=== PATIENT | male | born 1955 | race Caucasian/White ===

== ENCOUNTER 2018-07-07 05:33 | Inpatient (IN) | payer MEDICARE ==
[~2018-07-07] VITALS: Ht 185.4 cm; Wt 91.4 kg
[~2018-07-07 05:33] MED LIST: ASPI81CH PO; ATOR80 PO; GEMF600 PO; INSDET100 SC; ISOMON20 PO; LISI20 PO; METO50 PO
[2018-07-07 06:02] LABS: BASOPHILS ABSOLUTE AUTO 0.02 K/mm3 (0.00-0.23); BASOPHILS PERCENT AUTO 0 % (0-2); EOSINOPHILS ABSOLUTE AUTO 0.27 K/mm3 (0.00-0.68); EOSINOPHILS PERCENT AUTO 3 % (0-6); Hematocrit 48.9 % (37.0-53.0); Hemoglobin 16.7 g/dL (13.5-17.5); IMMATURE GRAN ABSOLUTE AUTO 0.01 K/mm3 (0.00-0.10); IMMATURE GRAN PERCENT AUTO 0 % (0-1); LYMPHOCYTES ABSOLUTE AUTO 2.39 K/mm3 (0.84-5.20); LYMPHOCYTES PERCENT AUTO 29 % (21-46); MONOCYTES ABSOLUTE AUTO 0.56 K/mm3 (0.16-1.47); MONOCYTES PERCENT AUTO 7 % (4-13); Mean Corpuscular HGB 28.2 pg (26.0-34.0); Mean Corpuscular HGB Conc 34.2 g/dL (31.5-36.5); Mean Corpuscular Volume 83 fL (80-100); Mean Platelet Volume 10.6 fL (9.1-12.4); NEUTROPHILS ABSOLUTE AUTO 4.99 K/mm3 (1.96-9.15); NEUTROPHILS PERCENT AUTO 61 % (41-73); Platelet Count 265 K/mm3 (150-400); RDW Coefficient Variation 12.4 % (11.7-14.2); RDW Standard Deviation 37.5 fL (35.1-46.3); Red Blood Cell Count 5.92 M/mm3 (4.30-5.90); White Blood Cell Count 8.24 K/mm3 (4.00-11.30)
[2018-07-07] MEDS ORDERED: GLIP10 PO (06:22)
[2018-07-07 06:25] LABS: Alanine Aminotransfer (ALT/SGP 23 U/L (12-78); Albumin, Blood 3.9 g/dL (3.4-5.0); Albumin/Globulin Ratio 0.9 (0.8-1.8); Alk Phos 123 U/L (50-136); Anion Gap 9 mmol/L (6-16); Aspartate Aminotrans (AST/SGOT 24 U/L (12-37); Bilirubin, Total 0.4 mg/dL (0.1-1.0); Blood Urea Nitrogen 33 mg/dL (8-24); Bun/Creatinine Ratio 29.2 (12.0-20.0); CO2, Blood 27 mmol/L (21-32); Calcium, Blood 9.5 mg/dL (8.5-10.1); Chloride, Blood 101 mmol/L (98-108); Creatinine, Blood 1.13 mg/dL (0.60-1.20); Globulin, Blood 4.3 g/dL (2.2-4.0); Glomerular Filtration Rate >60 (60-); Glucose, Blood 299 mg/dL (70-99); Potassium, Blood 4.7 mmol/L (3.5-5.5); Sodium, Blood 137 mmol/L (136-145); Total Protein, Blood 8.2 g/dL (6.4-8.2); Troponin I 0.031 ng/mL (0.000-0.040)
[2018-07-07 11:16] LABS: C-Reactive Protein, High Sens. 0.813 mg/L (0.000-3.000); Magnesium, Blood 2.5 mg/dL (1.6-2.4); Phosphorus, Blood 2.3 mg/dL (2.5-4.9)
[2018-07-07 11:22] LABS: Troponin I 0.044 ng/mL (0.000-0.040)
[2018-07-07 11:24] LABS: Triglycerides 181 mg/dL (30-160)
--- NOTE | 2018-07-07 11:38 | NUR ---
echocardiogram complete
[2018-07-07] MEDS ORDERED: METO100ER PO (12:41)
[2018-07-07] MEDS ORDERED: NITR.4SL SL (12:43)
[2018-07-07] MEDS ORDERED: CLON.1 PO (12:45)
[2018-07-07] MEDS ORDERED: ALUM-MAG HYDRO360 ML PO (12:47)
[2018-07-07] MEDS ORDERED: Isosorbide Mono60 MG PO (12:49)
[2018-07-07] MEDS ORDERED: CHOL10002 PO (12:50)
--- NOTE | 2018-07-07 17:47 | NUR ---
SHIFT SUMMARY 1215 PT RECEIVED FROM ER. ALERT AND ORIENTED X3. VSS. C/O 4-02/26 PAIN, MEDICATED WITH PRN PAIN MEDS. PT STATES FENTANYL IS NOT HELPING, NEW PAIN MEDS ORDERED BY DR. DUGGAN. MORPHINE 2 MG IV GIVEN, PT RESTING QUIETLY, RESPIRATIONS REGULAR AND UNLABORED. LUNG SOUNDS CLEAR, NSR RATE 66 PER TELE. NUMBNESS TO BLE. WOUND NOTED TO LEFT FOOT, PT STATES HE "REMOVED A CORN FROM HIS FOOT 2 YEARS AGO, BUT IT HAS NOT HEALED". WILL CONTINUE TO MONITOR PT.
[2018-07-08 04:37] LABS: Alanine Aminotransfer (ALT/SGP 20 U/L (12-78); Albumin, Blood 3.1 g/dL (3.4-5.0); Albumin/Globulin Ratio 0.8 (0.8-1.8); Alk Phos 104 U/L (50-136); Amylase, Blood 57 U/L (25-115); Anion Gap 7 mmol/L (6-16); Aspartate Aminotrans (AST/SGOT 20 U/L (12-37); Bilirubin, Total 0.7 mg/dL (0.1-1.0); Blood Urea Nitrogen 20 mg/dL (8-24); Bun/Creatinine Ratio 21.3 (12.0-20.0); CO2, Blood 27 mmol/L (21-32); Calcium, Blood 8.6 mg/dL (8.5-10.1); Chloride, Blood 106 mmol/L (98-108); Creatinine, Blood 0.94 mg/dL (0.60-1.20); Globulin, Blood 3.7 g/dL (2.2-4.0); Glomerular Filtration Rate >60 (60-); Glucose, Blood 126 mg/dL (70-99); Magnesium, Blood 2.2 mg/dL (1.6-2.4); Phosphorus, Blood 2.7 mg/dL (2.5-4.9); Sodium, Blood 140 mmol/L (136-145); Total Protein, Blood 6.8 g/dL (6.4-8.2)
--- NOTE | 2018-07-08 06:02 | NUR ---
SHIFT SUMMARY: PATEINT ABDOMINAL PAIN SEVERE PER PATIENT, ABLE TO GET SOME RELIEF WITH 2MG OF MORPHINE BUT STILL IN SIGNIFICANT PAIN. PATIENT ABLE TO GET COMPLETE RELIEF AND LONGER LASTING RESULTS WITH 4MG DOSE. ZOFRAN NOT EFFECTIVE FOR NAUSEA, REGLAN WORKS BETTER. X2 EPISODES OF SBP >170, LABETALOL GIVEN PER MD ORDER WITH SBP DROPPING TO 150'S. ALL OTHE VSS, CALL LIGHT WITHIN REACH, BED LOW AND LOCKED.
--- NOTE | 2018-07-08 06:23 | NUR ---
DRESSING PLACED ON PATIENTS LEFT FOOT
--- NOTE | 2018-07-08 13:04 | NUR ---
AM NOTE PT ALERT AND ORIENTED. VSS. TALKED ABOUT GUT REST, MORPHINE, ACTIVITY, SHOWERING. DURING AM MEDS HE DECLINED HIS LANTUS D/T NOT BE ABLE YET TO EAT WELL. HE WANTED TO JUST COVER WITH SLIDING SCALE. RELAYED TO DR DUGGAN PT WISHES. DR DUGGAN AGREED TO HOLDING LANTUS UNTIL PT ABLE TO EAT RELIABLY. CONTINUE POT.
--- NOTE | 2018-07-08 18:03 | NUR ---
EVENING NOTE PT ALERT AND ORIENTED. SR. NO AFIB NOTED. STARTED ON ORAL CARDIZEM. VSS. PT UP TO SHOWER WITH SET UP. TOLERATED WELL. HE AHS BEEN SLOWLY NIBBLING AT JELLO AND SIPPING ON APPLE JUICE. NO ABD PAIN NOTED. NO NAUSEA NOTED. NO STOOL YET. CBG STABLE. PT HAS NOT REQUIRED COVERAGE TODAY. NORMAL SALINE INFUSING PER ORDER. CONTINUE POT.
--- NOTE | 2018-07-08 20:57 | NUR ---
PCU NIGHTSHIFT ASSUMED CARE OF PT APPOX. 1900. PT A&OX4. ASSESSMENT COMPLETED. VITALS SIGNS STABLE, ALTHOUGH BLOOD PRESSURE SLIGHTLY ELEVATED AT THIS TIME, BUT TRENDING ABOUT THE SAME IT HAS BEEN THE LAST COUPLE OF DAYS. PT REPORTS ABLE TO EAT SOME FOOD THIS EVENING WITHOUT PAIN IN ABDOMEN. PT HAS WOUND ON BOTTOM OF LEFT FOOT, WHICH REPORTS HAS BEEN THERE FOR 2 YEARS. MEPILEX PLACED ON WOUND AT THIS TIME. REINFORCED EDUCATION ON NPO AT MIDNIGHT. BED IN LOW POSITION, CALL LIGHT IN REACH AND PT DENIES ANY NEEDS AT THIS TIME.
[2018-07-09 04:03] LABS: BASOPHILS ABSOLUTE AUTO 0.04 K/mm3 (0.00-0.23); BASOPHILS PERCENT AUTO 1 % (0-2); EOSINOPHILS ABSOLUTE AUTO 0.33 K/mm3 (0.00-0.68); EOSINOPHILS PERCENT AUTO 6 % (0-6); Hematocrit 40.2 % (37.0-53.0); Hemoglobin 13.5 g/dL (13.5-17.5); IMMATURE GRAN ABSOLUTE AUTO 0.01 K/mm3 (0.00-0.10); IMMATURE GRAN PERCENT AUTO 0 % (0-1); LYMPHOCYTES ABSOLUTE AUTO 2.17 K/mm3 (0.84-5.20); LYMPHOCYTES PERCENT AUTO 36 % (21-46); MONOCYTES ABSOLUTE AUTO 0.46 K/mm3 (0.16-1.47); MONOCYTES PERCENT AUTO 8 % (4-13); Mean Corpuscular HGB 27.8 pg (26.0-34.0); Mean Corpuscular HGB Conc 33.6 g/dL (31.5-36.5); Mean Corpuscular Volume 83 fL (80-100); Mean Platelet Volume 10.4 fL (9.1-12.4); NEUTROPHILS ABSOLUTE AUTO 2.97 K/mm3 (1.96-9.15); NEUTROPHILS PERCENT AUTO 50 % (41-73); Platelet Count 198 K/mm3 (150-400); RDW Coefficient Variation 12.6 % (11.7-14.2); RDW Standard Deviation 38.1 fL (35.1-46.3); Red Blood Cell Count 4.85 M/mm3 (4.30-5.90); White Blood Cell Count 5.98 K/mm3 (4.00-11.30)
[2018-07-09 04:24] LABS: Alanine Aminotransfer (ALT/SGP 20 U/L (12-78); Albumin, Blood 2.9 g/dL (3.4-5.0); Albumin/Globulin Ratio 0.9 (0.8-1.8); Alk Phos 95 U/L (50-136); Amylase, Blood 34 U/L (25-115); Anion Gap 7 mmol/L (6-16); Aspartate Aminotrans (AST/SGOT 23 U/L (12-37); Bilirubin, Total 0.7 mg/dL (0.1-1.0); Blood Urea Nitrogen 18 mg/dL (8-24); Bun/Creatinine Ratio 17.6 (12.0-20.0); CO2, Blood 27 mmol/L (21-32); Calcium, Blood 8.2 mg/dL (8.5-10.1); Chloride, Blood 106 mmol/L (98-108); Creatinine, Blood 1.02 mg/dL (0.60-1.20); Globulin, Blood 3.4 g/dL (2.2-4.0); Glomerular Filtration Rate >60 (60-); Glucose, Blood 163 mg/dL (70-99); Potassium, Blood 4.1 mmol/L (3.5-5.5); Sodium, Blood 140 mmol/L (136-145); Total Protein, Blood 6.3 g/dL (6.4-8.2)
--- NOTE | 2018-07-09 05:53 | NUR ---
SHIFT SUMMARY PT PLEASANT, COOPERATIVE, AND USES CALL LIGHT APPROPRIATELY. PT REMAINS A&OX4. ASSESSMENT FINDINGS REMAIN UNCHANGED. VITAL SIGNS STABLE, ALTHOUGH BLOOD PRESSURE REMAINS SLIGHTLY ELEVATED. HEART RHYTHM REMAINS NSR, ALTHOUGH PT HAD ONE RUN OF V. TACH. APPROX. 0340. I WAS IN ROOM AT THIS TIME TALKING WITH PT. PT WAS ASYMPTOMATIC W/ THIS. PT PAIN IN ABDOMEN INCREASED INTERMITENTLY, PRN PAIN MEDICATION GIVEN PER EMAR. PT NPO SINCE MIDNIGHT. BED IN LOW POSITION, CALL LIGHT IN REACH AND PT DENIES ANY NEEDS AT THIS TIME. WILL CONTINUE TO MONITOR UNTIL HANDOFF TO DAYSHIFT RN.
--- NOTE | 2018-07-09 16:30 | NUR ---
LEFT RADIAL SITE LEFT TR BAND REMOVED WITH OUT COMPLICATION. VSS. CMS WNL. CAP REIFL BRISK TO FINGERS. PT CONTINUES TO SLOWLY CLEAR FROM SEDATION. REPEATING QUESTIONS. IS STARTING TO REMEMBER A FEW THINGS. HE'S PLEASANT JUST NOT RMEMEBERING. TALKED WITH DR DUGGAN ABOUT HIS VERY PROLONGED LOC RECOVERY. NO ORDERS RECIEVED. CONTINUE POT.
[2018-07-09 17:27] LABS: Anion Gap 6 mmol/L (6-16); Blood Urea Nitrogen 15 mg/dL (8-24); Bun/Creatinine Ratio 16.3 (12.0-20.0); CO2, Blood 26 mmol/L (21-32); Calcium, Blood 8.1 mg/dL (8.5-10.1); Chloride, Blood 106 mmol/L (98-108); Creatinine, Blood 0.92 mg/dL (0.60-1.20); Glomerular Filtration Rate >60 (60-); Glucose, Blood 166 mg/dL (70-99); Potassium, Blood 4.1 mmol/L (3.5-5.5); Sodium, Blood 138 mmol/L (136-145)
--- NOTE | 2018-07-09 18:45 | NUR ---
EVENING NOTE PT ALERT. HE STILL CAN'T REMEMBER MOST OF THE DAY. HE CONTINUES TO ASK WHAT HAPPENED. ADVANCED DIET TO FULL LIQUID. HE DOESN'T LIKE THE TASTE OF THE FOOD BUT NO PAIN AFTER EATING. LEFT RADIAL SITE WNL. NO SWELLING, HEMATOMA OR BLEEDING NOTED. IVF INFUSING AT 50 ML/HR PRT ORDER. CONTINUE POT.
--- NOTE | 2018-07-09 19:45 | NUR ---
ASSUMED CARE PT RESTING IN ROOM COMFORTABLY. PER DAY SHIFT PT HAS BEEN CONFUSED AND DISORIENTED T/O SHIFT. PT RECEIVED HEAVY DOSES OF SEDATIVES FOR ANGIO TODAY. DAY SHIFT REPORTS PT NEEDS REORIENTED VERY OFTEN. BED ALARM IS ON FOR SAFETY. PT APPEARS TO BE CLEARING FROM ALERTED, IS A0X3 AT THIS TIME IN ROOM. SKIN PWD. RESP EVEN UNLABORED ON RA. DENIES PAIN AT THIS TIME. CALL LIGHT IN REACH. BED ALARM ON FOR SAFETY.
--- NOTE | 2018-07-10 05:26 | NUR ---
SHIFT SUMMARY PT SLEEPING IN ROOM COMFORTABLY. SLEPT WELL T/O SHIFT. PT HAS BECOME MORE ALERT SINCE SHIFT CHANGE. PT NOW AOX4, AND ABLE TO AMBULATE TO RR W/ SBA. ANGIO SITE IS CDI, NO HEMATOMAS NOTED TO AREA. ARMBOARD IN PLACE. RESP EVEN UNLBAORED ON RA. SKIN IS PWD. NO OTHER ACUTE CHANGES IN STATUS. CALL LIGHT IN REACH.
[2018-07-10 05:47] LABS: BASOPHILS ABSOLUTE AUTO 0.02 K/mm3 (0.00-0.23); BASOPHILS PERCENT AUTO 0 % (0-2); EOSINOPHILS ABSOLUTE AUTO 0.37 K/mm3 (0.00-0.68); EOSINOPHILS PERCENT AUTO 5 % (0-6); Hematocrit 40.8 % (37.0-53.0); Hemoglobin 13.7 g/dL (13.5-17.5); IMMATURE GRAN ABSOLUTE AUTO 0.01 K/mm3 (0.00-0.10); IMMATURE GRAN PERCENT AUTO 0 % (0-1); LYMPHOCYTES ABSOLUTE AUTO 2.21 K/mm3 (0.84-5.20); LYMPHOCYTES PERCENT AUTO 29 % (21-46); MONOCYTES PERCENT AUTO 8 % (4-13); Mean Corpuscular HGB 27.5 pg (26.0-34.0); Mean Corpuscular HGB Conc 33.6 g/dL (31.5-36.5); Mean Corpuscular Volume 82 fL (80-100); Mean Platelet Volume 10.5 fL (9.1-12.4); NEUTROPHILS ABSOLUTE AUTO 4.37 K/mm3 (1.96-9.15); NEUTROPHILS PERCENT AUTO 58 % (41-73); Platelet Count 208 K/mm3 (150-400); RDW Coefficient Variation 12.5 % (11.7-14.2); RDW Standard Deviation 37.3 fL (35.1-46.3); Red Blood Cell Count 4.99 M/mm3 (4.30-5.90); White Blood Cell Count 7.58 K/mm3 (4.00-11.30)
[2018-07-10 06:20] LABS: Alanine Aminotransfer (ALT/SGP 22 U/L (12-78); Albumin/Globulin Ratio 0.9 (0.8-1.8); Alk Phos 95 U/L (50-136); Amylase, Blood 34 U/L (25-115); Anion Gap 7 mmol/L (6-16); Aspartate Aminotrans (AST/SGOT 26 U/L (12-37); Bilirubin, Total 0.5 mg/dL (0.1-1.0); Blood Urea Nitrogen 15 mg/dL (8-24); Bun/Creatinine Ratio 14.6 (12.0-20.0); CO2, Blood 26 mmol/L (21-32); Calcium, Blood 8.6 mg/dL (8.5-10.1); Chloride, Blood 109 mmol/L (98-108); Creatinine, Blood 1.03 mg/dL (0.60-1.20); Globulin, Blood 3.4 g/dL (2.2-4.0); Glomerular Filtration Rate >60 (60-); Glucose, Blood 57 mg/dL (70-99); Phosphorus, Blood 2.8 mg/dL (2.5-4.9); Potassium, Blood 3.9 mmol/L (3.5-5.5); Sodium, Blood 142 mmol/L (136-145); Total Protein, Blood 6.4 g/dL (6.4-8.2)
[2018-07-10] MEDS ORDERED: INSULANPEN SC (11:54)
[2018-07-10] MEDS ORDERED: PAIN & FEVER325 MG PO (11:55)
[2018-07-10] MEDS ORDERED: CLOP75 PO (11:56)
[2018-07-10] MEDS ORDERED: DILT60ER PO (11:57)
[2018-07-10] MEDS ORDERED: LOSA50 PO (11:58)
[2018-07-10] MEDS ORDERED: CULTURELLE PRO1 EACH PO (11:59)
[2018-07-10] MEDS ORDERED: METO10 PO (12:00)
[2018-07-10] MEDS ORDERED: PANT20 PO (12:00)
== END 2018-07-10 13:03 | disposition home or self-care (01) | DRG 981 ==
LOC: ER 05:33 → PCU 11:08
PROVIDERS: Emergency Medicine; ADMIT Family Medicine
PROC: 02703DZ Dilation of Coronary Artery, One Artery with Intraluminal Device, Percutaneous Approach (ICD-10-PCS; principal; 2018-07-09)
PROC: B2111ZZ Fluoroscopy of Multiple Coronary Arteries using Low Osmolar Contrast (ICD-10-PCS; 2018-07-09)
DX: K85.90 Acute pancreatitis without necrosis or infection, unspecified (principal); I21.4 Non-ST elevation (NSTEMI) myocardial infarction; I42.9 Cardiomyopathy, unspecified; I48.92 Unspecified atrial flutter; I25.2 Old myocardial infarction; Z79.4 Long term (current) use of insulin; E78.5 Hyperlipidemia, unspecified; I10 Essential (primary) hypertension; Z95.1 Presence of aortocoronary bypass graft; Z79.82 Long term (current) use of aspirin; I25.10 Atherosclerotic heart disease of native coronary artery without angina pectoris; E11.51 Type 2 diabetes mellitus with diabetic peripheral angiopathy without gangrene; R19.7 Diarrhea, unspecified; R05 Cough; I48.91 Unspecified atrial fibrillation; E11.621 Type 2 diabetes mellitus with foot ulcer; L97.529 Non-pressure chronic ulcer of other part of left foot with unspecified severity; L97.522 Non-pressure chronic ulcer of other part of left foot with fat layer exposed
CPT/HCPCS: 36200; 36415; 71046; 73630; 74176; 75630; 76705; 80048; 80053; 80069; 82150; 82330; 82947; 83036; 83605; 83690; 83735; 84100; 84443; 84478; 84484; 85025; 86141; 92928; 93005; 93010; 93306; 93459; 96361; 96374; 96375; 99152; 99153; 99285-25; C1769; C1876; C1887; C1894; C9113; J1170; J1644; J1650; J2060; J2250; J2270; J2405; J3010; J7030; J7120; Q9967

== ENCOUNTER 2018-10-08 17:23 | Inpatient (IN) | payer MEDICARE ==
[~2018-10-08] VITALS: Ht 185.4 cm; Wt 87.7 kg
[~2018-10-08 17:23] MED LIST changes: -AMLO10 PO; -CHLO25B PO; -CLIN300 PO; -FURO20 PO; -INSULANPEN; -POTA10T PO; -Vitamin D2000 UNIT PO; -ZESTRIL40 MG PO
[2018-10-08] MEDS ORDERED: AMLO10 PO (19:30)
[2018-10-08] MEDS ORDERED: CLOP75 PO ×2 (19:30→19:34)
[2018-10-08] MEDS ORDERED: PANT20 PO ×2 (19:30→19:33)
[2018-10-08] MEDS ORDERED: CHLO25B PO (19:31)
[2018-10-08] MEDS ORDERED: Isosorbide Mono60 MG PO (19:31)
[2018-10-08] MEDS ORDERED: METO100ER PO (19:31)
[2018-10-08] MEDS ORDERED: GEMF600 PO (19:32)
[2018-10-08] MEDS ORDERED: NITR.4SL SL (19:32)
[2018-10-08] MEDS ORDERED: FURO20 PO (19:32)
[2018-10-08] MEDS ORDERED: POTA10T PO (19:32)
[2018-10-08] MEDS ORDERED: ATOR80 PO (19:33)
[2018-10-08] MEDS ORDERED: CLON.1 PO (19:33)
[2018-10-08] MEDS ORDERED: GLIP10 PO (19:33)
[2018-10-08 19:52] LABS: BASOPHILS ABSOLUTE AUTO 0.04 K/mm3 (0.00-0.23); BASOPHILS PERCENT AUTO 0 % (0-2); EOSINOPHILS ABSOLUTE AUTO 0.34 K/mm3 (0.00-0.68); EOSINOPHILS PERCENT AUTO 3 % (0-6); Hematocrit 39.7 % (37.0-53.0); Hemoglobin 13.6 g/dL (13.5-17.5); IMMATURE GRAN ABSOLUTE AUTO 0.07 K/mm3 (0.00-0.10); IMMATURE GRAN PERCENT AUTO 1 % (0-1); LYMPHOCYTES ABSOLUTE AUTO 1.99 K/mm3 (0.84-5.20); LYMPHOCYTES PERCENT AUTO 19 % (21-46); MONOCYTES ABSOLUTE AUTO 0.89 K/mm3 (0.16-1.47); MONOCYTES PERCENT AUTO 9 % (4-13); Mean Corpuscular HGB 28.6 pg (26.0-34.0); Mean Corpuscular HGB Conc 34.3 g/dL (31.5-36.5); Mean Corpuscular Volume 83 fL (80-100); Mean Platelet Volume 9.5 fL (9.1-12.4); NEUTROPHILS ABSOLUTE AUTO 6.99 K/mm3 (1.96-9.15); NEUTROPHILS PERCENT AUTO 68 % (41-73); Platelet Count 375 K/mm3 (150-400); RDW Coefficient Variation 12.9 % (11.7-14.2); Red Blood Cell Count 4.76 M/mm3 (4.30-5.90); White Blood Cell Count 10.32 K/mm3 (4.00-11.30)
[2018-10-08 20:13] LABS: C-REACTIVE PROTEIN, EXT RANGE 8.75 mg/dL (0.000-0.300)
[2018-10-08 20:14] LABS: Albumin, Blood 3.1 g/dL (3.4-5.0); Albumin/Globulin Ratio 0.5 (0.8-1.8); Bilirubin, Total 0.6 mg/dL (0.1-1.0); Bun/Creatinine Ratio 30.5 (12.0-20.0); Calcium, Blood 10.1 mg/dL (8.5-10.1); Creatinine, Blood 1.31 mg/dL (0.60-1.20); Globulin, Blood 5.7 g/dL (2.2-4.0); Potassium, Blood 3.2 mmol/L (3.5-5.5); Total Protein, Blood 8.8 g/dL (6.4-8.2)
[2018-10-08 21:00] LABS: International Normalized Ratio 0.98; Prothrombin Time Results 10.4 Sec (9.7-11.5)
[2018-10-08] MEDS ORDERED: INSULANPEN (23:26)
[2018-10-08] MEDS ORDERED: ZESTRIL40 MG PO (23:57)
[2018-10-08] MEDS ORDERED: ASPI81CH PO (23:58)
[2018-10-09] MEDS ORDERED: Vitamin D2000 UNIT PO
--- NOTE | 2018-10-09 00:06 | NUR ---
ASSUMED CARE PT ARRIVED TO UNIT APPROX. 2320 VIA KATHIY FROM ED. PT ABLE TO TRANSFER FROM [facility] TO BED. ORIENTED PT TO ROOM, UNIT, CALL LIGHT AND POLICIES. VITAL SIGNS STABLE. ASSESSMENT COMPLETED. 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 LEFT FOOT PT REPORT WOUND HAS BEEN THERE FOR APPROX 3 YEARS. BUT RECENTLY GOTTEN WORSE. LEFT FOOT SWOLLEN AND WARM TO TOUCH. SKIN WARMER CLOSER TO ULCER. ULCER STARTS ON BOTTOM SIDE OF LEFT FOOT AND TUNNELS THROUGH TO THE TOP OF LEFT FOOT. SLIGHT DRAINAGE AND WOUND APPEARS INFECTED. WOUND AREA CLEANED AND BANAGED AT THIS TIME. PT ABLE TO SIT UP AND EAT SOME FOOD. BED IN LOW POSITION. CALL LIGHT IN REACH AND PT DENIES ANY NEEDS AT THIS TIME.
[2018-10-09 04:00] LABS: BASOPHILS ABSOLUTE AUTO 0.04 K/mm3 (0.00-0.23); BASOPHILS PERCENT AUTO 0 % (0-2); EOSINOPHILS ABSOLUTE AUTO 0.35 K/mm3 (0.00-0.68); EOSINOPHILS PERCENT AUTO 4 % (0-6); Hematocrit 33.2 % (37.0-53.0); Hemoglobin 11.3 g/dL (13.5-17.5); IMMATURE GRAN ABSOLUTE AUTO 0.04 K/mm3 (0.00-0.10); IMMATURE GRAN PERCENT AUTO 0 % (0-1); LYMPHOCYTES ABSOLUTE AUTO 2.03 K/mm3 (0.84-5.20); LYMPHOCYTES PERCENT AUTO 21 % (21-46); MONOCYTES ABSOLUTE AUTO 0.95 K/mm3 (0.16-1.47); MONOCYTES PERCENT AUTO 10 % (4-13); Mean Corpuscular Volume 85 fL (80-100); Mean Platelet Volume 9.4 fL (9.1-12.4); NEUTROPHILS ABSOLUTE AUTO 6.38 K/mm3 (1.96-9.15); NEUTROPHILS PERCENT AUTO 65 % (41-73); Platelet Count 327 K/mm3 (150-400); RDW Coefficient Variation 12.8 % (11.7-14.2); RDW Standard Deviation 39.5 fL (35.1-46.3); White Blood Cell Count 9.79 K/mm3 (4.00-11.30)
[2018-10-09 04:14] LABS: Prothrombin Time Results 10.6 Sec (9.7-11.5)
[2018-10-09 04:18] LABS: Alanine Aminotransfer (ALT/SGP 30 U/L (12-78); Albumin, Blood 2.5 g/dL (3.4-5.0); Albumin/Globulin Ratio 0.6 (0.8-1.8); Alk Phos 201 U/L (50-136); Anion Gap 7 mmol/L (6-16); Aspartate Aminotrans (AST/SGOT 21 U/L (12-37); Bilirubin, Total 0.4 mg/dL (0.1-1.0); Blood Urea Nitrogen 40 mg/dL (8-24); Bun/Creatinine Ratio 31.5 (12.0-20.0); CO2, Blood 30 mmol/L (21-32); Calcium, Blood 9.2 mg/dL (8.5-10.1); Chloride, Blood 100 mmol/L (98-108); Creatinine, Blood 1.27 mg/dL (0.60-1.20); Globulin, Blood 4.5 g/dL (2.2-4.0); Glomerular Filtration Rate >60 (60-); Glucose, Blood 177 mg/dL (70-99); Potassium, Blood 3.3 mmol/L (3.5-5.5); Sodium, Blood 137 mmol/L (136-145)
--- NOTE | 2018-10-09 05:29 | NUR ---
SHIFT SUMMARY PT PLEASANT, COOOPERTIVE AND USES CALL LIGHT APPROPRIATELY. PT REMAINS A&O X4. ASSESSMENT FINDINGS REMAIN UNCHANGED SINCE ARRIVAL. VITAL SIGNS STABLE. BANDAGE REMAINS IN PLACE ON LEFT FOOT. PT ABLE TO REST FOR MOST OF SHIFT. BED IN LOW POSITION, CALL LIGHT IN REACH AND PT DENIES ANY NEEDS AT THIS TIME. WILL CONTINUE TO MONITOR UNTIL HANDOFF TO DAYSHIFT RN.
--- NOTE | 2018-10-09 06:11 | NUR ---
NOTE PT OFF TO CT THIS MORNING. RETURNED FROM CT. STABLE. NO S/SX OF ACUTE DISTRESS
--- NOTE | 2018-10-09 13:30 | NUR ---
PT RESTING QUIETLY IN ROOM. WILL BE HAVING A PROCEDURE TODAY, WILL KEEP NPO. PT AWARE, NO FURTHER CHANGES THIS SHIFT. CALL LIGHT IN REACH.
--- NOTE | 2018-10-09 13:34 | NUR ---
Advance Directive Education conducted. Patient stated that he wants "bone-breaking everything done to save his ass." He went on to clarify that he wants all heroic measures done upfront but after that he was not as confident how long he would want these measures continued. I expained the importance and process of the advance directive. I showed patient what the different sections are for with the booklet in hand. Patient was thankful for the information and stated that he will fill out the advance directive over the next few days.
--- NOTE | 2018-10-09 17:00 | NUR ---
PT RETURNED TO ROOM AFTER HAVING STENT PLACED, HIS CATH SITE LOOKS GOOD, SOFT NO BLEEDING. VS STABLE. HE WAS SLEEPY AFTER PROCEDURE, BUT IS MORE AWAKE NOW. DENIES PAIN, CALL LIGHT IN REACH.
--- NOTE | 2018-10-09 23:09 | NUR ---
[facility] APPROX. 1900. PT A&O X4. ASSESSMENT COMPLETED. VITAL SIGNS STABLE. PT POST ANGIO. W/ RT GROIN SITE. PT LAYING FLAT AT THIS TIME. BEGAN TO ELEVATED UP TO 30 DEGREES THIS TIME. TEGADERM IN PLACE. SITE C,D,I. NON TENDER AND NO S/SX OF BLEEDING, SWELLING OR HEMATOMA. PT DENIES ANY PT AT THIS TIME. WILL CONTINUE TO MONITOR THIS. ULCER ON FOOT REMAINS UNCAHGED. DRESSING IN PLACE. WILL REPLACE DRESSING THIS EVENING. PT HAS BLE NEUROPATHY. CHRONIC. RECIEVED NEW ROOM ASSIGNEMTN. REPROT CALLED TO RECIEVING RN. NO S/SX ACUTE DISTRESS. PT TAKEN VIA WHEEELCHAIR TO NEW ROOM BY PEER STAFF.
--- NOTE | 2018-10-10 | NUR ---
RECEIVED HAND OFF FROM CUSTOMER SUCCESS MANAGER USING SBAR. TRANSPORTED TO ROOM 209 VIA BED. TRANSFERED TO BED WITH FULL STAFF ASSISTANCE, TOLERATED WELL. AAO X3, MOTA, FOLLOWS ALL COMMANDS. ORIENTED TO ROOM, CALL SYSTEM, AND POC, VOICES UNDERSTANDING. DEIES FURTHER NEEDS AT THIS TIME. SAFETY MEASURES IN [place]. WILL CONTINUE TO MONITOR.
[2018-10-10 05:07] LABS: Anion Gap 6 mmol/L (6-16); Blood Urea Nitrogen 33 mg/dL (8-24); Bun/Creatinine Ratio 27.7 (12.0-20.0); CO2, Blood 31 mmol/L (21-32); Calcium, Blood 8.9 mg/dL (8.5-10.1); Chloride, Blood 98 mmol/L (98-108); Creatinine, Blood 1.19 mg/dL (0.60-1.20); Glomerular Filtration Rate >60 (60-); Glucose, Blood 267 mg/dL (70-99); Potassium, Blood 3.8 mmol/L (3.5-5.5); Sodium, Blood 135 mmol/L (136-145)
--- NOTE | 2018-10-10 06:19 | NUR ---
LYING IN SEMI FOWLERS WITH EYES CLOSED. NO FURTHER CHANGES SINCE TRANSFER TO UNIT. SAFETY MEASURES IN PLACE. WILL GIVE HAND OFF TO ONCOMING SHIFT USING SBAR.
--- NOTE | 2018-10-10 14:04 | NUR ---
IVF STARTED PER EMAR.
--- NOTE | 2018-10-10 15:22 | NUR ---
Patient is resting when I entered the room and easily awakens as I entered patient's room. Patient informs me that he had one successful surgery and an upcoming surgery same evening. Patient is in a pleasant mood and optimistic about the rest of the day. I provided emotional support and companionship. Patient responded well and voiced appreciation for my visit.
--- NOTE | 2018-10-10 16:37 | NUR ---
PATIENT GAVE PERMISSION FOR ME TO CARE FOR HIM TODAY 10/10/18. History, Chart, Medications and Allergies reviewed before start of procedure.Patient confirms NPO status and agrees with scheduled surgery. Lungs clear T/O to Auscultation.
--- NOTE | 2018-10-10 18:46 | NUR ---
10/10/18 184 Sade Delaney PACKED WITH IODOFORM,ADAPTIC, 4X4, KERLIX AND 4 " YAMILETH
--- NOTE | 2018-10-10 19:00 | NUR ---
PATIENT RETURNED TO ROOM AT THIS TIME. AWAKE. VSS. L FOOT ELEVATED, GAUZE DRESSING TO FOOT. TOES WARM, WIGGLEABLE. STATES HE FEELS SENSATION TO AREA OF I&D, WHICH IS NEW, BUT NO PAIN. DENIES NAUSEA. LS CLEAR, 98 % ON RA. HRR. NO C/O. DINNER TRAY GIVEN. PATIENT REPORTEDLY HAS NOT URINATED. PATIENT CONT TO DENY NEED TO URINATE. WILL REPORT TO NOC RN, PLAN FOR BLADDER SCAN. NO C/O AT THIS TIME.
--- NOTE | 2018-10-11 06:45 | NUR ---
SUMMARY PT SLEPT WITH MINIMAL DISCOMFORT TONIGHT. TO HAVE WOUND VAC TODAY. POSSIBLE DEBRIDE? NPO AT THIS TIME, PENDING DAY RN TO CONFIRM. CIRC CHECKS REEMAIN INTACT TO EXT.TOES X 4 MOBILE TO L. DSNGS REMAIN D/I
--- NOTE | 2018-10-11 07:27 | NUR ---
MESSAGE LEFT ON DR ALVAREZ'S HOSPITAL CONSULT LINE. HE IS UNAVAILABLE FOR HOSPITAL CONSULTS TODAY, BUT MAY DO TELEPHONE CONSULT. WILL INFORM DR CRANE WHEN OFFICE OPEN.
--- NOTE | 2018-10-11 10:38 | NUR ---
CALLED DR CRANE OFFICE AND LEFT MESSAGE RE: DR ALVAREZ NOT AVAILABLE FOR HOSPITAL CONSULTS TODAY.
--- NOTE | 2018-10-11 11:56 | NUR ---
Patient is recovering from surgery and waiting to get a wound pump. Patient is "in a good space" in his head and ready to start the healing process. Patient has no spiritual/emotional needs at this time. Patient was very appreciative of the time and care he received from the spiritual care department.
--- NOTE | 2018-10-11 13:30 | NUR ---
CALL TO DR CRANE OFFICE RE: ORDER FOR I&D AND WOUND VAC PLACEMENT. EBONI (SECURITY CHECKER) SPOKE WITH AND TOLD ME THAT HIS INTENTION WAS FOR NURSING STAFF TO PLACE WOUND VAC. I THEN TOLD HER WE WOULD NEED ORDERS FROM HIM FOR D/C AFTER WOUND VAC PLACED RE: ABX, F/U, ETC. D/C METROLOGY TECHNICIAN INFORMED OF NEED FOR HOME WOUND VAC AND HH - LIKELY NOT DELIVERED UNTIL TOMORROW.
--- NOTE | 2018-10-11 18:11 | NUR ---
SHIFT SUMMARY PATIENT W/O C/O THIS SHIFT. DRESSING TO L FOOT D&I. TOES PINK, WIGGLEABLE. FOOT ELEVATED. WOUND VAC TO BE OBTAINED TOMORROW AND PLACED. NO FURTHER INSTRUCTIONS REC'D FROM DR CRANE THIS AFTERNOON.
--- NOTE | 2018-10-12 06:39 | NUR ---
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 PT VSS T/O NIGHT. DRESSING TO LLE CDI, R GROIN SITE WNL. PT DENIED PAIN/N/V. CHANEL REG PO. PT ABX CONT PER ORDERS. AWAITING WOUND VAC. DR ALVAREZ'S OFFICE AWARE OF CONSULT PER REP. PT USING CALL LIGHT FOR ASSISTANCE, WILL CONT TO MONITOR UNTIL REP GIVEN TO OCOMING RN.
[2018-10-12] MEDS ORDERED: CLIN300 PO (10:27)
--- NOTE | 2018-10-12 19:30 | NUR ---
SHIFT SUMMARY PT A&OX4, VSS, POD2 L 5TH TOE AMPUTATION, LLE ELEVATED, AMB W/FWW TO BRP & [place]. VOIDING WELL. CHANEL PO, DENIES N&V. DENIES PAIN AT THIS TIME; TYLENOL GIVEN FOR DOW PAIN X1. AWAITING APPROVAL FOR WOUND VAC FROM [facility]; MEDICARE COMPUTERS WERE DOWN AT 1900 WHEN PAPERWORK WAS FINALLY REVIEWED BY LEAD REP; I PERSONALLY MADE 3 TELEPHONE CALLS TO [facility], AND FAXED REQ PAPERWORK, AND ANSWERED MULTIPLE QUESTIONS SO LEAD REP HAD THE NEEDED INFORMATION TO APPROVE THE WOUND VAC - THEN MEDICARE WEBSITE WAS DOWN; PLAN TO CB IN AM; PT IS PATIENT AND COOPERATIVE AND UNDERSTANDING. REPORT GIVEN TO JA RODRÍGUEZ.
--- NOTE | 2018-10-13 04:40 | NUR ---
SHIFT SUMMARY PT POD#3. DRESSING TO LEFT FOOT C/D/I. RE-WRAPPED YESTARDAY EVENING. PT REPORTING MINIMAL DISCOMFORT WITH SOME SENTATION TO BLE POST RE-VASCULARIZATION. PT INDEPENDENT IN ROOM. GOOD PO INTAKE + OUTPUT. AWAITING [employer] CLEARANCE FROM [employer] FOR PLACEMENT OF WOUND VAC. PT RESTED WELL T/O NIGHT + RESTING AT THIS TIME. CALL LIGHT IN REACH. WILL CONTINUE TO MONITOR + REPORT TO DAY SHIFT RN.
--- NOTE | 2018-10-13 12:30 | NUR ---
DISCHARGE SUMMARY PT A&OX4, VSS, LEFT FLOOR VIA WC WITH RN TO GO HOME WITH MOM, WITH ALL PERSONAL POSSESSIONS INCLUDING DISCHARGE PACKET; WOUND VAC APPLIED TO L FOOT. DISCHARGE INSTRUCTIONS PROVIDED. PT REPORTED UNDERSTANDING THOSE INSTRUCTIONS INCLUDING FU APPT WITH BACK SIZER. IV DC'D.
== END 2018-10-13 12:55 | disposition home health service (06) | DRG 617 ==
LOC: ER 17:23 → PCU 21:16 → SURS 21:16 → PCU 23:29 → SURS 10-10 00:31
PROVIDERS: Emergency Medicine; Internal Medicine; Podiatrist; ADMIT Internal Medicine
PROC: 04CL3ZZ Extirpation of Matter from Left Femoral Artery, Percutaneous Approach (ICD-10-PCS; 2018-10-09)
PROC: 04CN3ZZ Extirpation of Matter from Left Popliteal Artery, Percutaneous Approach (ICD-10-PCS; 2018-10-09)
PROC: 047N3Z1 Dilation of Left Popliteal Artery using Drug-Coated Balloon, Percutaneous Approach (ICD-10-PCS; 2018-10-09)
PROC: 047L3Z1 Dilation of Left Femoral Artery using Drug-Coated Balloon, Percutaneous Approach (ICD-10-PCS; 2018-10-09)
PROC: 0SBQ0ZZ Excision of Left Toe Phalangeal Joint, Open Approach (ICD-10-PCS; 2018-10-10)
PROC: 0Y6Y0Z0 Detachment at Left 5th Toe, Complete, Open Approach (ICD-10-PCS; principal; 2018-10-10 17:00)
DX: E11.621 Type 2 diabetes mellitus with foot ulcer (principal); L97.429 Non-pressure chronic ulcer of left heel and midfoot with unspecified severity; M86.172 Other acute osteomyelitis, left ankle and foot; E11.51 Type 2 diabetes mellitus with diabetic peripheral angiopathy without gangrene; Z79.4 Long term (current) use of insulin; I10 Essential (primary) hypertension; I25.10 Atherosclerotic heart disease of native coronary artery without angina pectoris; E78.5 Hyperlipidemia, unspecified; E11.42 Type 2 diabetes mellitus with diabetic polyneuropathy; E55.9 Vitamin D deficiency, unspecified; Z95.5 Presence of coronary angioplasty implant and graft; Z79.82 Long term (current) use of aspirin; K21.9 Gastro-esophageal reflux disease without esophagitis; I70.201 Unspecified atherosclerosis of native arteries of extremities, right leg; I70.244 Atherosclerosis of native arteries of left leg with ulceration of heel and midfoot; L97.524 Non-pressure chronic ulcer of other part of left foot with necrosis of bone
CPT/HCPCS: 36415; 37225; 73630; 74176; 75625; 75716; 80048; 80053; 82947; 83036; 83690; 85025; 85610; 85651; 85730; 86140; 87071; 87075; 87077; 87186; 87205; 88305; 88311; 97116; 97162; 97530; 99152; 99153; 99284-25; C1714; C1725; C1760; C1769; C1884; C1887; C1894; C2623; C9113; J1644; J2250; J3010; J3480; J7030; J7050; J7120; Q9967

== ENCOUNTER → 2018-10-08 | Outpatient (CLI) | payer MEDICARE ==
[~2018-10-08] MED LIST changes: +ALUM-MAG HYDRO360 ML PO; +AMLO10 PO; +CHLO25B PO; +CHOL10002 PO; +CLIN300 PO; +CLON.1 PO; +CLOP75 PO; +CULTURELLE PRO1 EACH PO; +DILT60ER PO; +FURO20 PO; +GLIP10 PO; +INSULANPEN; +INSULANPEN SC; +Isosorbide Mono60 MG PO; +LOSA50 PO; +METO10 PO; +METO100ER PO; +NITR.4SL SL; +PAIN & FEVER325 MG PO; +PANT20 PO; +POTA10T PO; +Vitamin D2000 UNIT PO; +ZESTRIL40 MG PO
== END | disposition home or self-care (01) ==
LOC: LAB 10:34 → LAB SHORT 10:34
DX: L03.116 Cellulitis of left lower limb (principal); M86.172 Other acute osteomyelitis, left ankle and foot; L97.524 Non-pressure chronic ulcer of other part of left foot with necrosis of bone
CPT/HCPCS: 87070; 87075; 87205

== ENCOUNTER 2018-11-22 08:00 | Day surgery (SDC) | payer MEDICARE ==
[~2018-11-22 08:00] MED LIST changes: +AMLO10 PO; +CHLO25B PO; +CLIN300 PO; +FURO20 PO; +INSULANPEN; +POTA10T PO; +Vitamin D2000 UNIT PO; +ZESTRIL40 MG PO
== END 2018-11-22 22:37 | disposition home or self-care (01) ==
LOC: WOUND 08:00
DX: E11.621 Type 2 diabetes mellitus with foot ulcer (principal); L97.522 Non-pressure chronic ulcer of other part of left foot with fat layer exposed; E11.51 Type 2 diabetes mellitus with diabetic peripheral angiopathy without gangrene; E11.21 Type 2 diabetes mellitus with diabetic nephropathy
CPT/HCPCS: 73630; 87071; 87077; 87205; G0463

== ENCOUNTER 2018-11-27 10:11 | Day surgery (SDC) | payer MEDICARE | END 2018-11-27 23:16 | disposition home or self-care (01) | LOC: WOUND 10:11 | DX: T87.89 Other complications of amputation stump (principal); E11.621 Type 2 diabetes mellitus with foot ulcer; L97.522 Non-pressure chronic ulcer of other part of left foot with fat layer exposed; E11.51 Type 2 diabetes mellitus with diabetic peripheral angiopathy without gangrene; I73.9 Peripheral vascular disease, unspecified; E11.40 Type 2 diabetes mellitus with diabetic neuropathy, unspecified; I10 Essential (primary) hypertension; I25.10 Atherosclerotic heart disease of native coronary artery without angina pectoris; I25.2 Old myocardial infarction; E78.5 Hyperlipidemia, unspecified; Z89.422 Acquired absence of other left toe(s) ==

== ENCOUNTER 2018-12-04 10:10 | Day surgery (SDC) | payer MEDICARE | END 2018-12-04 22:42 | disposition home or self-care (01) | LOC: WOUND 10:10 | DX: T87.89 Other complications of amputation stump (principal); E11.621 Type 2 diabetes mellitus with foot ulcer; L97.522 Non-pressure chronic ulcer of other part of left foot with fat layer exposed; E11.51 Type 2 diabetes mellitus with diabetic peripheral angiopathy without gangrene; E11.21 Type 2 diabetes mellitus with diabetic nephropathy; I25.10 Atherosclerotic heart disease of native coronary artery without angina pectoris; I10 Essential (primary) hypertension; I25.2 Old myocardial infarction | CPT/HCPCS: G0463 ==

== ENCOUNTER 2018-12-11 09:50 | Day surgery (SDC) | payer MEDICARE | END 2018-12-11 22:57 | disposition home or self-care (01) | LOC: WOUND 09:50 | DX: T87.89 Other complications of amputation stump (principal); E11.621 Type 2 diabetes mellitus with foot ulcer; E11.51 Type 2 diabetes mellitus with diabetic peripheral angiopathy without gangrene; I73.9 Peripheral vascular disease, unspecified; E11.21 Type 2 diabetes mellitus with diabetic nephropathy; E11.40 Type 2 diabetes mellitus with diabetic neuropathy, unspecified; I25.10 Atherosclerotic heart disease of native coronary artery without angina pectoris; I10 Essential (primary) hypertension; I25.2 Old myocardial infarction | CPT/HCPCS: G0463 ==

== ENCOUNTER 2018-12-18 09:15 | Day surgery (SDC) | payer MEDICARE | END 2018-12-18 23:20 | disposition home or self-care (01) | LOC: WOUND 09:15 | DX: E11.621 Type 2 diabetes mellitus with foot ulcer (principal); L97.512 Non-pressure chronic ulcer of other part of right foot with fat layer exposed; L97.511 Non-pressure chronic ulcer of other part of right foot limited to breakdown of skin; E11.51 Type 2 diabetes mellitus with diabetic peripheral angiopathy without gangrene; I73.9 Peripheral vascular disease, unspecified; E11.21 Type 2 diabetes mellitus with diabetic nephropathy; E11.40 Type 2 diabetes mellitus with diabetic neuropathy, unspecified; I25.10 Atherosclerotic heart disease of native coronary artery without angina pectoris; I10 Essential (primary) hypertension; Z89.422 Acquired absence of other left toe(s) | CPT/HCPCS: G0463 ==

== ENCOUNTER 2018-12-25 12:40 | Day surgery (SDC) | payer MEDICARE | END 2018-12-25 22:38 | disposition home or self-care (01) | LOC: WOUND 12:40 | DX: E11.621 Type 2 diabetes mellitus with foot ulcer (principal); L97.512 Non-pressure chronic ulcer of other part of right foot with fat layer exposed; L97.511 Non-pressure chronic ulcer of other part of right foot limited to breakdown of skin; I73.9 Peripheral vascular disease, unspecified; E11.69 Type 2 diabetes mellitus with other specified complication; E11.65 Type 2 diabetes mellitus with hyperglycemia; M86.8X7 Other osteomyelitis, ankle and foot; E11.21 Type 2 diabetes mellitus with diabetic nephropathy; I25.10 Atherosclerotic heart disease of native coronary artery without angina pectoris; I25.2 Old myocardial infarction; E78.5 Hyperlipidemia, unspecified; I10 Essential (primary) hypertension; Z89.422 Acquired absence of other left toe(s); T87.81 Dehiscence of amputation stump; Z48.00 Encounter for change or removal of nonsurgical wound dressing | CPT/HCPCS: G0463 ==

== ENCOUNTER → 2019-02-08 | Outpatient (CLI) | payer MEDICARE | END | disposition home or self-care (01) | LOC: LAB SHORT 13:06 → PLD 13:06 | DX: L60.2 Onychogryphosis (principal); B35.1 Tinea unguium | CPT/HCPCS: 88305; 88312 ==